=== PATIENT | female | born 1960 | race Caucasian/White ===

== ENCOUNTER 2022-10-26 09:30 | Outpatient (CLI) | payer BC, SELFPAY | END 2022-10-26 09:31 | disposition home or self-care (01) | LOC: NFLDREF 10-28 02:19 | PROVIDERS: PCP Physician Assistant Medical; Referring Provider Physician Assistant Medical; Visit Provider Physician Assistant Medical | DX: Z00.00 Encounter for general adult medical examination without abnormal findings (principal); E03.9 Hypothyroidism, unspecified; E78.5 Hyperlipidemia, unspecified; R03.0 Elevated blood-pressure reading, without diagnosis of hypertension | CPT/HCPCS: 80053; 80061; 84443 ==

== ENCOUNTER 2023-11-11 10:05 | Outpatient (CLI) | payer BC, SELFPAY | END 2023-11-11 10:06 | disposition home or self-care (01) | PROVIDERS: PCP Physician Assistant Medical; Visit Provider Physician Assistant Medical | DX: E03.9 Hypothyroidism, unspecified (principal); E78.2 Mixed hyperlipidemia; I10 Essential (primary) hypertension | CPT/HCPCS: 80053; 80061; 84439; 84443 ==

== ENCOUNTER 2023-12-16 11:11 | Outpatient (CLI) | payer BC, SELFPAY ==
--- NOTE | 2023-12-16 11:30 | CRLHL7_ITS ---
For Patients: As a result of the Century Cures Act, medical imaging exams and procedure reports are released immediately into your electronic medical record. You may view this report before your referring provider. If you have questions, please contact your health care provider. INDICATION: Left leg pain, history of Garcia`s cyst COMPARISON: None. TECHNIQUE: A compression venous ultrasound exam was performed of the left lower extremity using marquez-scale imaging, color Doppler and spectral Doppler analysis. FINDINGS: Sonographic imaging of the left lower extremity demonstrates normal compressibility and color Doppler venous blood flow within the common femoral vein and deep femoral vein. History of GSV stripping noted. Saphenofemoral junction normal. Within the thigh, the femoral vein is patent and compressible. At a lower level, the popliteal and posterior tibial veins also show normal compressibility and color Doppler venous blood flow. Limited imaging of the contralateral groin demonstrates a normal spectral waveform and color Doppler venous blood flow within the right common femoral vein. Popliteal cyst is present measuring 2.7 x 1.4 x 3.4 cm. IMPRESSION: No evidence of deep vein thrombosis within the left lower extremity. 3.4 cm popliteal cyst. Dictated by Oseas Hill MD @ 12/17/2023 1:27:26 PM (Electronically Signed)
--- NOTE | 2023-12-16 12:15 | CRLHL7_ITS ---
For Patients: As a result of the Cures Act, medical imaging exams and procedure reports are released immediately into your electronic medical record. You may view this report before your referring provider. If you have questions, please contact your health care provider. Indication: recent splinter, eval for foreign body Technique: Grayscale and color Doppler ultrasound of the left heel soft tissues performed. Comparison: None Findings: A nonspecific focus of hypointensity is present measuring 3.5 millimeters. No abnormal vascularity. No evidence of linear foreign body. Impression: No evidence of linear foreign body. Nonspecific area of decreased echotexture measuring 3.5 millimeters. Dictated by Oseas Hill MD @ 12/17/2023 1:28:48 PM (Electronically Signed)
== END 2023-12-16 11:12 | disposition home or self-care (01) ==
PROVIDERS: PCP Physician Assistant Medical; Visit Provider Podiatrist
DX: M79.672 Pain in left foot; M79.605 Pain in left leg; M71.22 Synovial cyst of popliteal space [Baker], left knee; G89.29 Other chronic pain; R30.0 Dysuria
CPT/HCPCS: 76882; 93971

== ENCOUNTER 2024-04-07 07:30 | Outpatient (RCR) | payer BC, SELFPAY ==
--- NOTE | 2023-12-27 21:50 | PT.OPE ---
[facility] [place] Outpatient Eval PT [facility] Outpatient Eval Start: 12/26/23 17:44 Freq: Status: Active Protocol: Document 12/26/23 17:44 BMS (Rec: 12/26/23 17:56 BMS [id number]) E-signed By Constanza Jones PT Physical Therapy Outpatient Evaluation Insurance Information Recert Due Date 03/25/24 Insurance Name [employer] Medical Diagnosis lumbar radiculopathy Treating Diagnosis lumbar radiculopathy M54.16 abnormal gait R26.89 achilles tendonitis Referring MD Chen Mcneil MD Subjective Subjective pain started ~ 4 mos ago thought i had a splinter in my heel, felt like a small piece left in there. 2 mos ago felt like heel swetha, had CT and US of heel by podiatry. On Sat pain became severe in leg and had to sit frequently at dog park which I have never had to do before, by Saturday couldnt put weight through it. taking advil/ tylenol every 2 hours not helping hydro codone not help. Saturday had to lie in bed all day bc of the pain. also was so constipated but couldnt tolerate sitting on ring to go, was finally able ot evacuate a helped some. feel like about 2 mos ago I started changing the way I walk bc it hurt in heel. Saw Dr Mcneil on , did xray, ordered medrol dose pack but did start it until today pharmacy didnt get the order. pain is 10/10 in groin, leg, I cant sit, stand, roll over in bed, this afternoon I was finally able to shower and brush teeth all in a row without sitting. pain in lateral malleoulus worst now, is nubm on the outside and feel a super tight pull through leg. L achilles tendonitis in past that was so bad I had to use a scooter, also have had plantarfasciitis, both of which are much worse now and is Bakers cyst. Have had a microvascular decompression for trigeminal nerve and this pain is just like that nerve pain. I am of course worried bc my sister had similar onset of same symptoms and ended up dying from uterine endometrial cancer, and my mother from cancer of peritomeum, so that is very much in the back of my mind. 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 as this loosened up so did sensitivity . PA mobs mild restriction no additional pain lumbar. SI L facing. calf and hamstring hypertonic Balance & Gait mild path deviation with significant antalgic limp Posture complete WB on R with lateral shift, head forward and inc thoracic kyphosis and lumbar lordosis. Sensation/Reflexes DTR not assessed due to challenges in positioning tolerance, sensation hypersens top 1/3 lateral calf L, diminished to sharp/dull rest of L5 and S1 dermatomes. L3-4 not tested this date. Other/Pertinent Objective +slump, + repeat flex for radicular Assessment Assessment/Impression Patient is very pleasant 63 yo female referred for lumbar radiculopathy. States symptoms began ~ 4 mos ago with back of knee pain similar to popliteal cyst (has had before ). 2 mos ago achilles tendinitis flared (has previous history but had not been bothering) and Sat pain became 10/10. She has been unable to work sufficiently ( has had to resort to working on laptop in bed) no position lasts more than a few minutes. is in clear distress this date. Patient felt relief with prone lying and prone prop, instructed in standing alternate, instructed in use of SPC in contralateral hand to offload L limb, and in extension and lateral positioning at doorway, log roll for bed mobility and use of ice vs heat. Presents with L5-S1 and sacral torsion, poss L2-3 with groin symptoms but did not assess this date, may be referral from SI. Patient sister passed 2 years ago from dx of endometrial tumor that began as similar pain to patient's current, as well as her mother having had cancer ( lining of stomach and peritoneum), patient has hx of hysterectomy due to cyst and is concerned this may be related. Discussed that if she is having concerns it is absolutely appropriate to discuss with her provider to assess if US, CT, MRI imaging of abdomen/pelvic region would be appropriate. Plan of Care Rehabilitation Potential Good Rehabilitation Potential Comments extremely motivated and able to execute self care as instructed. Physical Therapy Goals 1) Patient will demonstrate I HEP and self care/home mgmt techniques for pain management, core stability and ROM. 2 ) Pt report pain <2-3/10 with activity and provocative positions rolling over in bed, standing up, getting out of car etc. 3) Pt report pain not interrupting sleep more than 2x/ week without use of Medication. 4)Pt demo ability to participate in clinic and home strengthening program for core, hip, LE and balance. 5) Patient demo improved mobility with gait and tolerance of activity for trip with 13 yo granddaughter to [place] Coordination/Communication With Referral Source Treatment Plan/Direct Interventions Electrical Stimulation,Gait Training,Ice/Cold/ Vasopneumatic,Manual Therapy, Neuromuscular Re-ed,Self-Care/ Home Management,Therapeutic Activities,Therapeutic Exercises,Traction (Mechanical ) Frequency/Duration 2x/week x 6 weeks, will modify frequency and duration up to 12 visits prn. Patient Will Be Discharged From Therapy Completion of LTG(s),Skills Plateau,Independent w/HEP, Independently Progressing Evaluation Billing Complexity Low Certification Information Initial Certification Date 12/26/23 Ending Certification Date 03/24/24 Provider Signature Required Communication Only-No Signature Required
== END 2024-08-05 23:59 | disposition home or self-care (01) ==
PROVIDERS: PCP Physician Assistant Medical; Visit Provider Orthopaedic Surgery
DX: M54.16 Radiculopathy, lumbar region (principal); Z51.89 Encounter for other specified aftercare
CPT/HCPCS: 97012; 97032; 97110; 97116; 97140; 97161; 97164; 97530; 97535

== ENCOUNTER 2024-06-02 08:56 | Outpatient (CLI) | payer BC, SELFPAY | END 2024-06-02 08:57 | disposition home or self-care (01) | LOC: NFLDREF 06-04 07:52 | PROVIDERS: PCP Physician Assistant Medical; Referring Provider Physician Assistant Medical; Visit Provider Physician Assistant Medical | DX: E03.9 Hypothyroidism, unspecified (principal) | CPT/HCPCS: 84443 ==

== ENCOUNTER 2024-11-12 08:02 | Outpatient (CLI) | payer BC, SELFPAY | END 2024-11-12 08:03 | disposition home or self-care (01) | LOC: NFLDREF 11-17 11:55 | PROVIDERS: PCP Physician Assistant Medical; Referring Provider Physician Assistant Medical; Visit Provider Physician Assistant Medical | DX: Z00.00 Encounter for general adult medical examination without abnormal findings (principal); I10 Essential (primary) hypertension; I25.10 Atherosclerotic heart disease of native coronary artery without angina pectoris; E78.2 Mixed hyperlipidemia; E03.9 Hypothyroidism, unspecified | CPT/HCPCS: 80053; 80061; 84443 ==

== ENCOUNTER 2024-11-27 09:33 | Outpatient (CLI) | payer BC, SELFPAY ==
--- NOTE | 2024-11-27 09:45 | CRLHL7_ITS ---
For Patients: As a result of the Century Cures Act, medical imaging exams and procedure reports are released immediately into your electronic medical record. You may view this report before your referring provider. If you have questions, please contact your health care provider. INDICATION: BILATERAL SCREENING MAMMOGRAM, ASYMPTOMATIC 64 Y/O FEMALE COMPARISON: 05/06/2018, 10/28/2015, 07/23/2013 TECHNIQUE: Digital mammogram in CC and MLO projections including computer-aided detection (CAD) and tomosynthesis. BREAST COMPOSITION: There are scattered areas of fibroglandular density. FINDINGS: No suspicious findings. ASSESSMENT: BI-RADS 1 Negative RECOMMENDATION: Annual screening mammogram. A lay language report of this examination will be provided to the patient. Dictated by: Oseas Hill MD @ 11/27/2024 11:31:46 (Electronically Signed)
== END 2024-11-27 09:34 | disposition home or self-care (01) ==
LOC: MAMMO 09:34
PROVIDERS: PCP Physician Assistant Medical; Visit Provider Physician Assistant Medical
DX: Z12.31 Encounter for screening mammogram for malignant neoplasm of breast (principal)
CPT/HCPCS: 77063; 77067